=== PATIENT | male | born 1950 | race Caucasian/White ===

== ENCOUNTER 2020-11-22 22:26 | Inpatient (IN) | payer OTHER ==
[2020-11-22] MEDS ORDERED: NA CHLORIDE 0.9% 1,000 ML ONE (23:35)
[2020-11-22] MEDS ORDERED: CEFTRIAXONE 1000 MG/VIAL ONE (23:35)
[2020-11-23 00:09] LABS: Absolute Lymphocytes (CBC) 0.2 K/uL (0.7-4.9); Basophils % 0.1 % (0-1.3); Hematocrit 37.7 % (39.6-49.0); Lymphocytes % 1.3 % (15.3-44.8); MPV 8.3 fL (7.6-11.3); RBC Red Blood Cell Count 4.06 M/uL (4.33-5.43)
[2020-11-23 00:15] LABS: Urine Blood 2+ (Negative); Urine Glucose Negative (Negative); Urine Protein Negative (Negative); Urine Specific Gravity 1.015 (1.005-1.030)
[2020-11-23 00:33] LABS: ALT/SGPT 27 U/L (12-78); AST/SGOT 21 U/L (15-37); Albumin 3.8 g/dL (3.4-5.0); Alkaline Phosphatase 61 U/L (45-117); Amylase 79 U/L (25-115); BUN Blood Urea Nitrogen 25 mg/dL (7-18); Bicarbonate 25 mmol/L (21-32); Bilirubin Direct 0.2 mg/dL (0-0.2); Bilirubin Total 0.9 mg/dL (0.2-1.0); CKMB Creatine Kinase MB 1.7 ng/mL (1.0-3.6); Creatine Phosphokinase 148 U/L (39-308); Glucose Level 115 mg/dL (74-106); Lipase 213 U/L (73-393); Potassium 3.6 mmol/L (3.5-5.1); Sodium Level 145 mmol/L (136-145); Troponin (Emerg Dept Use Only) < 0.02 ng/mL (0.0-0.045)
[2020-11-23 00:36] LABS: Protime INR 1.09
[2020-11-23 01:18] LABS: Urine Bacteria >50 /HPF (NONE SEEN); Urine Yeast MANY (NONE SEEN)
--- NOTE | 2020-11-23 02:21 | ER ---
Nurse's Notes [facility] Name: Tony Lara Age: 70 yrs Sex: Male : 1950 Arrival Date: 11/22/2020 Time: 22:31 Bed 13 Private MD: Diagnosis: Severe sepsis without septic shock;Acute cystitis Presentation: 11/22 22:41 Chief complaint: Patient states: around 1500 pt was outside and began to feel dizzy and kc4 had tingling in hands. dizziness has subsided as of now. pt complains of nausea . Pre EMS pt had fever of 101.9 tylenol 1000mg given enroute. pt has extensive PMH. 11/23 00:06 Coronavirus screen: Vaccine status: Patient reports receiving the 2nd dose of the covid df1 vaccine. Ebola Screen: Patient negative for fever greater than or equal to 101.5 degrees Fahrenheit, and additional compatible Ebola Virus Disease symptoms. Initial Sepsis Screen: Does the patient meet any 2 criteria? Temp <36.0*C (96.8*F)) or > 38.3*C (100.9*F). HR > 90 bpm. Does the patient have a suspected source of infection? No. Patient's initial sepsis screen is negative. Risk Assessment: Do you want to hurt yourself or someone else? Patient reports no desire to harm self or others. Onset of symptoms was November 22, 2020. 00:06 Acuity: DAVID 3 df1 00:06 Method Of Arrival: EMS: [facility] df1 Triage Assessment: 11/22 22:45 General: Appears in no apparent distress. well groomed, Behavior is calm, cooperative, kc4 appropriate for age. Pain: Denies pain. EENT: No deficits noted. Neuro: Historical: - Allergies: 22:45 No Known Allergies; kc4 - Immunization history:: Adult Immunizations up to date, Client reports receiving the 2nd dose of the Covid vaccine. - Social history:: Smoking status: Patient denies any tobacco usage or history of. Patient/guardian denies using alcohol, street drugs, IV drugs, over the counter diet medications, tobacco products, The patient lives at home, No barriers to communication noted. - Family history:: unknown. - Hospitalizations: : No recent hospitalization is reported. Screenin/01 00:06 Abuse screen: Denies threats or abuse. Nutritional screening: No deficits noted. df1 Tuberculosis screening: No symptoms or risk factors identified. Fall Risk None identified. Assessment: 01:25 General: Appears in no apparent distress. Behavior is calm, cooperative, appropriate kc4 for age. Pain: Complains of pain in back Pain currently is 5 out of 10 on a pain scale. 01:27 Neuro: No deficits noted. Cardiovascular: No deficits noted. Cardiovascular: No kc4 deficits noted. Reports fatigue, lightheadedness, nausea, Denies chest pain, diaphoresis, palpitations, shortness of breath, syncope, vomiting, Heart tones S1 Capillary refill < 3 seconds Pulses are all present. Respiratory: No deficits noted. Respiratory: No deficits noted. GI: No deficits noted. No signs and/or symptoms were reported involving the gastrointestinal system. : Urine is blood tinged. EENT: No deficits noted. Derm: No deficits noted. Musculoskeletal: No deficits noted. 11:31 Reassessment: Patient appears in no apparent distress at this time. Patient and/or aj2 family updated on plan of care and expected duration. Pain level reassessed. Patient is alert, oriented x 3, equal unlabored respirations, skin warm/dry/pink. Patient states symptoms have improved. Vital Signs: 11/22 22:45 BP 117 / 68; Pulse 88; Resp 18; Temp 100.5(O); Pulse Ox 95% on R/A; Weight 82.55 kg kc4 (R); Height 5 ft. 7 in. (170.18 cm) (R); 11/23 00:07 BP 103 / 67; Pulse 73; Resp 18; Pulse Ox 95% on R/A; df1 01:24 BP 108 / 64; Pulse 68; Resp 18; Temp 98.8(O); Pulse Ox 99% on R/A; kc4 11:31 BP 98 / 76; Pulse 84; Resp 18; Temp 98.8; Pulse Ox 100% ; aj2 11/22 22:45 Body Mass Index 28.50 (82.55 kg, 170.18 cm) kc4 ED Course: 11/22 22:31 Patient arrived in ED. mw2 22:41 Maria Garcia is Primary Nurse. kc4 22:43 Conrad Herndon MD is Attending Physician. ma2 22:45 Arm band placed on left wrist. kc4 23:00 Inserted saline lock: 20 gauge in right forearm, using aseptic technique. kc4 11/23 00:04 Amylase Sent. df1 00:04 Amylase, Serum Sent. df1 00:04 Chest Single View XRAY Sent. df1 00:05 Basic Metabolic Panel Sent. df1 00:05 Blood Culture Adult (2) Sent. df1 00:05 CBC with Diff Sent. df1 00:05 CPK Sent. df1 00:05 Ckmb Sent. df1 00:05 LFT's Sent. df1 00:05 Lactate Sent. df1 00:05 Lipase Sent. df1 00:05 Procalcitonin Sent. df1 00:05 Protime (+inr) Sent. df1 00:05 Ptt, Activated Sent. df1 00:05 Troponin (emerg Dept Use Only) Sent. df1 00:05 Urine Microscopic Only Sent. df1 00:05 Inserted saline lock: 20 gauge in left wrist, using aseptic technique. df1 00:07 Triage completed. df1 00:07 Patient has correct armband on for positive identification. Placed in gown. Bed in low df1 position. Call light in reach. Side rails up X 1. 00:07 No provider procedures requiring assistance completed. df1 00:11 Chest Single View XRAY In Process Unspecified. EDMS 02:20 Clayton Song MD is Hospitalizing Provider. ma2 06:25 COVID-19 : Document "Date of Symptom Onset" if Symptomatic. Sent. kc4 06:26 Urine Culture Sent. kc4 06:26 Blood Culture Adult (2) Sent. kc4 06:26 CBC with Diff Sent. kc4 11:31 No apparent distress. Resting quietly. aj2 11:31 IV discontinued. aj2 Administered Medications: 11/22 23:16 Not Given (dose given with EMSs): Acetaminophen 1000 mg PO once kc4 23:50 Drug: NS 0.9% (30 ml/kg) 30 ml/kg Route: IV; Rate: bolus; Site: right antecubital; bs2 11/23 06:27 Follow up: Response: No adverse reaction; IV Status: Completed infusion kc4 11/22 23:50 Drug: Rocephin (cefTRIAXone) 1 grams Route: IV; Rate: calculated rate; Site: right bs2 antecubital; 11/23 06:26 Follow up: Response: No adverse reaction; IV Status: Completed infusion kc4 Outcome: 02:20 Decision to Hospitalize by Provider. ma2 12:46 Patient left the ED. iw Signatures: Dispatcher [employer] Carolyn Stephen, RN Conrad Llanes MD MD ma2 Grace Sarkar mw2 Cristy Chang RN RN bs2 Daniel Barajas Kourtney kc4 Bren Morales df1
--- NOTE | 2020-11-23 02:21 | EDPHYS ---
Physician Documentation [facility] Name: Tony Lara Age: 70 yrs Sex: Male : 1950 Arrival Date: 11/22/2020 Time: 22:31 Bed 13 Private MD: ED Physician Conrad Herndon HPI: 11/22 23:13 This 70 yrs old Male presents to ER via Unassigned with complaints of ma2 Dizziness, Fever. 23:13 The patient presents with feeling faint. Onset: The symptoms/episode began/occurred ma2 gradually, 1 day(s) ago. Associated signs and symptoms: Pertinent negatives: ataxia, combativeness, confusion, head injury, palpitations, , shortness of breath. Severity of symptoms: At their worst the symptoms were mild in the emergency department the symptoms are unchanged. The patient has experienced similar episodes in the past. Had a urological procedure, where they put a Stevenson in the problem for bladder urodynamic studies 3 days ago. He has symptom of UTI, dysuria and. Historical: - Allergies: 22:45 No Known Allergies; kc4 - Immunization history:: Adult Immunizations up to date, Client reports receiving the 2nd dose of the Covid vaccine. - Social history:: Smoking status: Patient denies any tobacco usage or history of. Patient/guardian denies using alcohol, street drugs, IV drugs, over the counter diet medications, tobacco products, The patient lives at home, No barriers to communication noted. - Family history:: unknown. - Hospitalizations: : No recent hospitalization is reported. ROS: 23:13 Constitutional: Negative for fever, chills, and weight loss. ma2 23:13 All other systems are negative. Exam: 23:13 Constitutional: This is a well developed, well nourished patient who is awake, alert, ma2 and in no acute distress. Head/Face: Normocephalic, atraumatic. Eyes: Pupils equal round and reactive to light, extra-ocular motions intact. Lids and lashes normal. Conjunctiva and sclera are non-icteric and not injected. Cornea within normal limits. Periorbital areas with no swelling, redness, or edema. ENT: Nares patent. No nasal discharge, no septal abnormalities noted. Tympanic membranes are normal and external auditory canals are clear. Oropharynx with no redness, swelling, or masses, exudates, or evidence of obstruction, uvula midline. Mucous membranes moist. Neck: Trachea midline, no thyromegaly or masses palpated, and no cervical lymphadenopathy. Supple, full range of motion without nuchal rigidity, or vertebral point tenderness. No Meningismus. Chest/axilla: Normal chest wall appearance and motion. Nontender with no deformity. No lesions are appreciated. Cardiovascular: Regular rate and rhythm with a normal S1 and S2. No gallops, murmurs, or rubs. Normal PMI, no JVD. No pulse deficits. Respiratory: Lungs have equal breath sounds bilaterally, clear to auscultation and percussion. No rales, rhonchi or wheezes noted. No increased work of breathing, no retractions or nasal flaring. Abdomen/GI: Soft, non-tender, with normal bowel sounds. No distension or tympany. No guarding or rebound. No evidence of tenderness throughout. Back: No spinal tenderness. No costovertebral tenderness. Full range of motion. Skin: Warm, dry with normal turgor. Normal color with no rashes, no lesions, and no evidence of cellulitis. MS/ Extremity: Pulses equal, no cyanosis. Neurovascular intact. Full, normal range of motion. Neuro: Awake and alert, GCS 15, oriented to person, place, time, and situation. Cranial nerves II-XII grossly intact. Motor strength 5/5 in all extremities. Sensory grossly intact. Cerebellar exam normal. Normal gait. Vital Signs: 22:45 BP 117 / 68; Pulse 88; Resp 18; Temp 100.5(O); Pulse Ox 95% on R/A; Weight 82.55 kg kc4 (R); Height 5 ft. 7 in. (170.18 cm) (R); 11/23 00:07 BP 103 / 67; Pulse 73; Resp 18; Pulse Ox 95% on R/A; df1 01:24 BP 108 / 64; Pulse 68; Resp 18; Temp 98.8(O); Pulse Ox 99% on R/A; kc4 11:31 BP 98 / 76; Pulse 84; Resp 18; Temp 98.8; Pulse Ox 100% ; aj2 11/22 22:45 Body Mass Index 28.50 (82.55 kg, 170.18 cm) kc4 MDM: 11/22 22:43 Patient medically screened. [facility] 23:13 Differential diagnosis: hypovolemia, idiopathic dizziness, near-syncope, UTI. [facility] 11/23 02:19 Data reviewed: vital signs, nurses notes. Counseling: I had a detailed discussion with [facility] the patient and/or guardian regarding: the historical points, exam findings, and any diagnostic results supporting the discharge/admit diagnosis, the presence of at least one elevated blood pressure reading (>120/80) during this emergency department visit, the need for further work-up and treatment in the hospital. Response to treatment: the patient's symptoms have markedly improved after treatment. 11/22 23:05 Order name: Amylase, Serum [facility] 11/22 23:05 Order name: Basic Metabolic Panel; Complete Time: 00:34 [facility] 11/22 23:05 Order name: Blood Culture Adult (2) [facility] 11/22 23:05 Order name: CBC with Diff [facility] 11/22 23:05 Order name: CPK; Complete Time: 00:34 [facility] 11/22 23:05 Order name: Ckmb; Complete Time: 00:34 [facility] 11/22 23:05 Order name: LFT's; Complete Time: 00:34 [facility] 11/22 23:05 Order name: Lactate; Complete Time: 00:33 [facility] 11/22 23:05 Order name: Lipase; Complete Time: 00:34 [facility] 11/22 23:05 Order name: Procalcitonin; Complete Time: 00:59 [facility] 11/22 23:05 Order name: Protime (+inr); Complete Time: 00:41 [facility] 11/22 23:05 Order name: Ptt, Activated; Complete Time: 00:41 [facility] 11/22 23:05 Order name: Troponin (emerg Dept Use Only); Complete Time: 00:34 [facility] 11/22 23:05 Order name: Urine Microscopic Only; Complete Time: 01:26 [facility] 11/22 23:05 Order name: Chest Single View XRAY [facility] 11/22 23:05 Order name: Accucheck; Complete Time: 00:04 [facility] 11/22 23:05 Order name: Cardiac monitoring; Complete Time: 23:17 [facility] 11/22 23:05 Order name: EKG - Nurse/Tech; Complete Time: 23:17 [facility] 11/22 23:06 Order name: Amylase; Complete Time: 00:34 EDMS 11/23 00:14 Order name: Urine Dipstick-Ancillary; Complete Time: 00:33 EDMS 11/23 00:22 Order name: Glucose, Ancillary Testing; Complete Time: 00:33 EDMS 11/23 01:09 Order name: COVID-19 : Document "Date of Symptom Onset" if Symptomatic. ma2 11/23 01:19 Order name: Urine Culture EDMS 11/23 06:46 Order name: CBC with Automated Diff EDMS 11/23 07:08 Order name: Comprehensive Metabolic Panel EDMS 11/23 07:12 Order name: Procalcitonin EDMS 11/23 09:20 Order name: Manual Differential EDMS 11/22 23:05 Order name: IV Saline Lock - Large Bore; Complete Time: 23:20 ak2 11/22 23:05 Order name: Labs collected and sent; Complete Time: 00:04 ak2 11/22 23:05 Order name: O2 Per Protocol; Complete Time: 23:17 ak2 11/22 23:05 Order name: O2 Sat Monitoring; Complete Time: 23:17 ma2 11/22 23:05 Order name: Urine Dipstick-Ancillary (obtain specimen); Complete Time: 00:04 [facility] Administered Medications: 11/22 23:16 Not Given (dose given with EMSs): Acetaminophen 1000 mg PO once kc4 23:50 Drug: NS 0.9% (30 ml/kg) 30 ml/kg Route: IV; Rate: bolus; Site: right antecubital; 2 11/23 06:27 Follow up: Response: No adverse reaction; IV Status: Completed infusion kc4 11/22 23:50 Drug: Rocephin (cefTRIAXone) 1 grams Route: IV; Rate: calculated rate; Site: right bs2 antecubital; 11/23 06:26 Follow up: Response: No adverse reaction; IV Status: Completed infusion kc4 Disposition Summary: 11/23/20 02:20 Hospitalization Ordered Hospitalization Status: Inpatient Admission ma2 Provider: Clayton Song Condition: Stable ma2 Problem: new ma2 Symptoms: are unchanged ma2 Bed/Room Type: Standard [facility] Location: Telemetry/MedSurg (Inpatient)(11/23/20 11:20) Room Assignment: [facility](11/23/20 11:20) eb Diagnosis - Severe sepsis without septic shock ma2 - Acute cystitis ma2 Discharge Instructions: - Discharge Summary Sheet ma2 Forms: - Medication Reconciliation Form ma2 - SBAR form ma2 Prescriptions: - Cipro 500 mg Oral Tablet - take 1 tablet by ORAL route every 12 hours for 7 days; 14 tablet; Refills: 0, ma2 Product Selection Permitted Signatures: Dispatcher [employer] EDMI Kevin Sandoval, SECURITY ADMINISTRATOR-C SECURITY ADMINISTRATOR-Cla1 Bernarda Lombardo RN RN tl1 Conrad Herndon MD MD ma2 Bessie Summers Bridget, RN RN bs2 Maria Garcia 4 Corrections: (The following items were deleted from the chart) 04:15 02:20 Telemetry/MedSurg (Inpatient) ma2 tl1 04:15 02:20 ma2 tl1 11:20 04:15 [facility] ER HOLD 1 eb 11:20 04:15 ERHOLD- 1 eb
--- NOTE | 2020-11-23 04:25 | P.HP ---
Certification for Inpatient Patient admitted to: Observation With expected LOS: <2 Midnights Patient will require the following post-hospital care: None Practitioner: I am a practitioner with admitting privileges, knowledge of patient current condition, hospital course, and medical plan of care. Services: Services provided to patient in accordance with Admission requirements found in Title 42 Section 412.3 of the Code of Federal Regulations <Kevin Sandoval - Last Filed: 11/23/20 04:25> Patient History Date of Service: 11/23/20 Reason for admission: UTI History of Present Illness: 70-year-old male with history of multiple spinal injuries, BPH presents emergency department for fever, malaise. Patient reports that he developed fever yesterday, does report that he had urodynamic testing 3 days ago with his urologist. Patient was evaluated in the emergency department labs were significant for white count 16.5 hemoglobin 12.6 medical 37.7 platelet count 83 GFR 57 procalcitonin 2.59 urinalysis with greater than 50 bacteria 2+ blood, yeastmany. Patient was initially febrile to 101 but treated with Tylenol. ED provider wishes to admit under observation for further evaluation and management of UTI status post instrumentation. - Past Medical/Surgical History -: BPH -: Multiple spinal injuries -: Cervical fusion -: Multiple back surgeries Psychosocial/ Personal History: Lives at home, alone and is retired - Social History Smoking Status: Never smoker Alcohol use: No CD- Drugs: No Caffeine use: Yes Place of Residence: Home <Kevin Sandoval - Last Filed: 11/23/20 04:25> Date of Service: 11/23/20 <Clayton Song - Last Filed: 11/23/20 17:32> Review of Systems 10-point ROS is otherwise unremarkable General: Fever, Chills, Weakness, Malaise Genitourinary: Frequency, Urgency <Kevin Sandoval - Last Filed: 11/23/20 04:25> Physical Examination - Physical Exam General: Alert, In no apparent distress, Oriented x3 HEENT: Atraumatic, PERRLA, Mucous membr. moist/pink Neck: Supple, 2+ carotid pulse no bruit, No LAD Respiratory: Clear to auscultation bilaterally, Normal air movement Cardiovascular: Regular rate/rhythm, Normal S1 S2 Gastrointestinal: Normal bowel sounds, No tenderness Musculoskeletal: No tenderness Integumentary: No rashes Neurological: Normal speech, Normal strength at 5/5 x4 extr, Normal tone, Normal affect - Studies Laboratory Data (last 24 hrs) 11/22/20 23:45: PT 12.6 H, INR 1.09, APTT ND 11/22/20 23:45: WBC 16.50 H, Hgb 12.6 L, Hct 37.7 L, Plt Count 83 L 11/22/20 23:45: Sodium 145, Potassium 3.6, BUN 25 H, Creatinine 1.25, Glucose 115 H, Total Bilirubin 0.9, AST 21, ALT 27, Alkaline Phosphatase 61, Amylase 79, Lipase 213 <Kevin Sandoval - Last Filed: 11/23/20 04:25> - Studies Laboratory Data (last 24 hrs) 11/23/20 05:37: Sodium 147 H, Potassium 4.2, BUN 22 H, Creatinine 1.11, Glucose 117 H, Total Bilirubin 0.7, AST 13 L, ALT 23, Alkaline Phosphatase 52 11/23/20 05:37: WBC 16.20 H, Hgb 11.5 L, Hct 34.3 L, Plt Count 83 L 11/22/20 23:45: PT 12.6 H, INR 1.09, APTT ND 11/22/20 23:45: WBC 16.50 H, Hgb 12.6 L, Hct 37.7 L, Plt Count 83 L 11/22/20 23:45: Sodium 145, Potassium 3.6, BUN 25 H, Creatinine 1.25, Glucose 115 H, Total Bilirubin 0.9, AST 21, ALT 27, Alkaline Phosphatase 61, Amylase 79, Lipase 213 <Clayton Song - Last Filed: 11/23/20 17:32> Assessment and Plan - Plan Assessment: Dysuria, leukocytosis secondary to urinary tract infection status post instrumentationurodynamic testing with history of BPH Thrombocytopenia Plan: Dysuria, leukocytosis secondary to urinary tract infection status post instrumentationurodynamic testing with history of BPH: Blood and urine cultures obtained continue with Rocephin at this time. Recheck labs for improvement of leukocytosis/procalcitonin. Patient able to void without significant difficulty at this time. Anticipate clinical improvement over the course next 24 to 48 hours. Thrombocytopenia: Unknown etiology, patient with similar thrombocytopenia in 2011. Will monitor with daily labs, provide SCDs for DVT prophylaxis. DVT PPX: SCDs Code status: Full code Discharge Plan: Home Plan to discharge in: 24 Hours - Advance Directives Does patient have a Living Will: No Does patient have a Durable POA for Healthcare: No - Code Status/Comfort Care Code Status Assessed: Yes (Full code) Critical Care: No Time Spent Managing Pts Care (In Minutes): 55 <Kevin Sandoval - Last Filed: 11/23/20 04:25> - Plan Patient seen and examined on rounds this morning Reports feeling slightly better. Concerned about leaving his dog home alone. Anxious to get back home as soon as possible Borderline temperature this morning, no significant change in leukocytosis. Continue plan as noted above. Possible discharge tomorrow <Clayton Song - Last Filed: 11/23/20 17:32>
[2020-11-23] MEDS ORDERED: HYDROCODONE/APAP 7.5/325 MG TAB PO PRN (04:30)
[2020-11-23] MEDS ORDERED: ONDANSETRON 4 MG/2 ML VIAL IV PRN (04:30)
[2020-11-23] MEDS: NA CHLORIDE 0.9% 1,000 ML IV SCH ×2 (04:30→17:21)
[2020-11-23] MEDS ORDERED: NA CHLORIDE 0.9% 1,000 ML ONE ×2 (05:09→09:45)
[2020-11-23 06:40] LABS: Absolute Lymphocytes (CBC) 0.6 K/uL (0.7-4.9); Basophils % 0.2 % (0-1.3); Hematocrit 34.3 % (39.6-49.0); Lymphocytes % 3.7 % (15.3-44.8); MPV 8.6 fL (7.6-11.3); RBC Red Blood Cell Count 3.67 M/uL (4.33-5.43)
[2020-11-23 07:06] LABS: Albumin 3.3 g/dL (3.4-5.0); Bilirubin Total 0.7 mg/dL (0.2-1.0); Potassium 4.2 mmol/L (3.5-5.1)
--- NOTE | 2020-11-23 07:07 | RAD REPORT ---
EXAM DESCRIPTION: RAD - Chest Single View - 11/23/2020 12:06 am CLINICAL HISTORY: uti COMPARISON: CHEST SINGLE VIEW dated 02/26/2011 FINDINGS: Lines: None. Lungs: No evidence of edema or pneumonia. Pleural: No significant pleural effusions or pneumothorax. Cardiac: The heart size is within normal limits. Bones: No acute fractures. ACDF in the cervical spine. Other: IMPRESSION: No acute cardiopulmonary disease.
[2020-11-23] MEDS ORDERED: PNEUMOCOCCAL VACCINE 0.5 ML IMVAC ONE ×3 (08:00→10:13)
[2020-11-23] MEDS ORDERED: INFLUENZA VACCINE (for 6+ mo) 0.5 ML DOSE IMVAC ONE ×2 (08:00→09:45)
[2020-11-23 09:20] LABS: Blood Morphology Comment NOT SEEN (NOT SEEN); Platelet Estimate DECR
[2020-11-23 14:55] VITALS: BMI 28.6
[2020-11-23] MEDS ORDERED: BISACODYL E.C. 5 MG TAB PO ONE (19:55)
[2020-11-23] MEDS: CEFTRIAXONE 1 GM/NS 50 ML 1 GM/50 ML BAG IV SCH (20:48)
[2020-11-23] MEDS: GABAPENTIN 300 MG CAP PO SCH (20:49)
[2020-11-23] MEDS ORDERED: HOME MED 1 EA UNK (Gabapentin [Gabapentin] 600 MG Tablet) PO SCH (21:00)
[2020-11-23] MEDS ORDERED: ACETAMINOPHEN 325 MG TABLET PO PRN (21:39)
[2020-11-24] MEDS: NA CHLORIDE 0.9% 1,000 ML IV SCH ×5 (00:30→20:00)
[2020-11-24] MEDS ORDERED: NA CHLORIDE 0.9% 500 ML IV ONE (03:43)
[2020-11-24 07:01] LABS: Absolute Lymphocytes (CBC) 0.7 K/uL (0.7-4.9); Basophils % 0.3 % (0-1.3); Hematocrit 32.5 % (39.6-49.0); Lymphocytes % 12.2 % (15.3-44.8); MPV 8.6 fL (7.6-11.3); RBC Red Blood Cell Count 3.44 M/uL (4.33-5.43)
[2020-11-24 07:28] LABS: Albumin 2.8 g/dL (3.4-5.0); Bilirubin Total 0.3 mg/dL (0.2-1.0); Potassium 3.8 mmol/L (3.5-5.1); Protein, Total 5.4 g/dL (6.4-8.2)
[2020-11-24] MEDS: GABAPENTIN 300 MG CAP PO SCH ×2 (08:58→20:12)
--- NOTE | 2020-11-24 11:16 | EKG ---
Test Date: 2020-11-22 Test Time: 22:40:06 Husker Operator: MEASUREMENT RESULTS: Intervals: Rate: 91 FL: 142 QRSD: 88 QT: 342 QTc: 420 [place]: P: 37 FL: 142 QRS: -16 T: 31 INTERPRETIVE STATEMENTS: Normal sinus rhythm Nonspecific T wave abnormality Abnormal ECG Compared to ECG 02/26/2011 06:25:14 T-wave abnormality now present Sinus bradycardia no longer present Electronically Signed On 11-24-20 11:13:24 CDT by Niko Florez
--- NOTE | 2020-11-24 12:43 | P.PN ---
Date of Service: 11/24/20 Subjective: Patient reports feeling better today. Reports had headache overnight, felt clinical registered nurse his head and cold in his lower body. Dysuria some slight improvement, no hematuria. Slight nausea, no vomiting, no diarrhea Patient with low blood pressure overnight, given 500 cc bolus. 10 point review of system otherwise negative. Physical exam GEN: Alert, oriented, NAD HEENT: Normal conjunctiva, sclera anicteric CV: Regular rate and rhythm, no edema Pulm: Nonlabored respiration on room air ABD: Soft, nontender, nondistended Integumentary: No rashes Neuro: Normal speech, normal affect Problem list Acute cystitis, s/p instrumentation/urodynamic testing History of BPH Thrombocytopenia Patient with overall improvement, improving appetite, improving energy, improving strength Slightly hypotensive this morning, states slight decreased p.o. intake We will continue to monitor blood pressure/electrolytes Continue IV fluids If patient continues to improve, possibility of discharge home tomorrow Need to await for urine culture finalization/speciation. Patient does state over the last several months he has been told his blood pressure runs low. Code: Full Dispo: Dissipate discharge home in the next 1-2 days Time Spent Managing Pts Care (In Minutes): 35
[2020-11-24] MEDS: CEFTRIAXONE 1 GM/NS 50 ML 1 GM/50 ML BAG IV SCH (20:12)
[2020-11-24 22:55] VITALS: O2SAT 92
[2020-11-25] MEDS: NA CHLORIDE 0.9% 1,000 ML IV SCH ×2 (01:25→04:00)
[2020-11-25 06:11] LABS: Absolute Lymphocytes (CBC) 0.9 K/uL (0.7-4.9); Basophils % 0.3 % (0-1.3); Hematocrit 33.9 % (39.6-49.0); Lymphocytes % 11.2 % (15.3-44.8); MPV 9.1 fL (7.6-11.3); RBC Red Blood Cell Count 3.65 M/uL (4.33-5.43)
[2020-11-25 06:34] LABS: Albumin 2.8 g/dL (3.4-5.0); Bilirubin Total 0.3 mg/dL (0.2-1.0); Potassium 4.2 mmol/L (3.5-5.1); Protein, Total 5.7 g/dL (6.4-8.2)
[2020-11-25] MEDS ORDERED: SMZ./TMP. 800/160 MG TABLET PO SCH (09:00)
[2020-11-25] MEDS: GABAPENTIN 300 MG CAP PO SCH (09:24)
--- NOTE | 2020-11-25 11:05 | P.DS ---
Admission Date: 11/23/20 Discharge Date: 11/25/20 Disposition: ROUTINE DISCHARGE Discharge Condition: GOOD Reason for Admission: UTI Procedures: CXR (11/23): no acute cardiopulmonary process Problem list Acute cystitis, s/p instrumentation/urodynamic testing History of BPH Thrombocytopenia, chronic Brief History of Present Illness: 70-year-old male with history of multiple spinal injuries, BPH presents emergency department for fever, malaise. Patient reports that he developed fever yesterday, does report that he had urodynamic testing 3 days ago with his urologist. Patient was evaluated in the emergency department labs were significant for white count 16.5 hemoglobin 12.6 medical 37.7 platelet count 83 GFR 57 procalcitonin 2.59 urinalysis with greater than 50 bacteria 2+ blood, yeastmany. Patient was initially febrile to 101 but treated with Tylenol. ED provider wishes to admit under observation for further evaluation and management of UTI s/p instrumentation. Hospital Course: His UA was notable for bacteria and yeast. Patient was empirically treated with IV rocephin for his UTI. He had gradual improvement of his symptoms and was feeling better every day. Urine culture grew resistant Enterobacter. He was switched to Bactrim. He felt significantly better and was asking to be discharged home. He was discharged to complete 14 days of Bactrim and diflucan. He will follow up with his PCP in 3-5 days Follow up with his urologist as scheduled in the next 1-2 weeks. Vital Signs/Physical Exam: Physical exam GEN: Alert, oriented, NAD HEENT: Normal conjunctiva, sclera anicteric CV: Regular rate and rhythm, no edema Pulm: Nonlabored respiration on room air ABD: Soft, nontender, nondistended Integumentary: No rashes Neuro: Normal speech, normal affect Temp Pulse Resp BP Pulse Ox 98.1 F 57 16 96/52 L 92 11/25/20 08:00 11/25/20 08:00 11/25/20 08:00 11/25/20 08:00 11/25/20 08:00 Laboratory Data at Discharge: WBC 7.90 K/uL (4.3-10.9) D 11/25/20 05:17 Hgb 11.5 g/dL (13.6-17.9) L 11/25/20 05:17 Hct 33.9 % (39.6-49.0) L 11/25/20 05:17 Plt Count 86 K/uL (152-406) L D 11/25/20 05:17 PT 12.6 SECONDS (9.5-12.5) H 11/22/20 23:45 INR 1.09 11/22/20 23:45 APTT ND 11/22/20 23:45 Sodium 144 mmol/L (136-145) 11/25/20 05:17 Potassium 4.2 mmol/L (3.5-5.1) 11/25/20 05:17 BUN 12 mg/dL (7-18) 11/25/20 05:17 Creatinine 1.03 mg/dL (0.55-1.3) 11/25/20 05:17 Glucose 106 mg/dL (74-106) 11/25/20 05:17 Total Bilirubin 0.3 mg/dL (0.2-1.0) 11/25/20 05:17 AST 15 U/L (15-37) 11/25/20 05:17 ALT 22 U/L (12-78) 11/25/20 05:17 Alkaline Phosphatase 49 U/L (45-117) 11/25/20 05:17 Amylase 79 U/L (25-115) 11/22/20 23:45 Lipase 213 U/L (73-393) 11/22/20 23:45 Home Medications: Alendronate Sodium [Fosamax] 70 mg PO EVERY 7TH DAY 11/23/20 Gabapentin 600 mg PO BID 11/23/20 Hydrocodone Bit/Acetaminophen [Hydrocodon-Acetaminoph 7.5-325] 1 tab PO Q6H PRN 11/23/20 Fluconazole [Diflucan] 200 mg PO DAILY 14 Days #14 tablet 11/25/20 Smz./Tmp. [Bactrim Ds 800 MG/160 MG*] 1 tab PO BID 14 Days #28 tab 11/25/20 New Medications: Smz./Tmp. [Bactrim Ds 800 MG/160 MG*] 1 tab PO BID 14 Days #28 tab Fluconazole [Diflucan] 200 mg PO DAILY 14 Days #14 tablet Diet: Regular Activity: Ad roshni Followup: NONE,NONE [Primary Care Provider] - Christian Kirkpatrick [ACTIVE - CAN ADMIT] - Time spent managing pt's care (in minutes): 40
[2020-11-25 12:36] VITALS: BP 106/60; TEMP 97.7
== END 2020-11-25 12:18 | disposition home or self-care (01) | DRG 690 ==
LOC: ER 22:26 → OBSVTOIN 11-23 04:25 → INTOOBSV 11-23 04:25 → ERHOLD 11-23 04:25 → 2ND 11-23 12:40 → OBSVTOIN 11-23 15:21
PROVIDERS: ADMIT Hospitalist; ATTEND Hospitalist
DX: N30.00 Acute cystitis without hematuria (principal); N40.0 Benign prostatic hyperplasia without lower urinary tract symptoms; D69.6 Thrombocytopenia, unspecified; I95.9 Hypotension, unspecified; Z23 Encounter for immunization
CPT/HCPCS: 36415; 71045; 80048; 80053; 80076; 81003; 81015; 82150; 82550; 82553; 82947; 83605; 83690; 84145; 84484; 85025; 85610; 85730; 87040; 87077; 87086; 87088; 87186; 87205; 90471; 90732; 93005; 96365; 96366; 96368; 99284; G0378; J0696; J7030; J7040; Q2035

== ENCOUNTER 2021-03-05 09:47 | Day surgery (SDC) | payer OTHER ==
[2021-03-01 15:19] LABS: Absolute Lymphocytes (CBC) 0.9 K/uL (0.7-4.9); Hematocrit 41.7 % (39.6-49.0); Lymphocytes % 18.5 % (15.3-44.8); MPV 8.4 fL (7.6-11.3)
[2021-03-01 15:22] LABS: Protime INR 0.98
[2021-03-01 15:37] LABS: Potassium 4.1 mmol/L (3.5-5.1)
[2021-03-01 16:59] LABS: Blood Morphology Comment NOT SEEN (NOT SEEN); Platelet Estimate DECR; White Blood Cell Scan OK (OK)
[~2021-03-05 09:47] MED LIST: AMPICILLIN SODIUM 2 GM in NA CHLORIDE 0.9% 100 ML IVPB SCH; Gentamicin Inj 200 MG in NA CHLORIDE 0.9% 100 ML IV SCH
[2021-03-05] MEDS ORDERED: Ringers Lactate 1,000 ML IV ONE (10:26)
[2021-03-05] MEDS ORDERED: ACETAMINOPHEN 500 MG TAB ONE (11:09)
[2021-03-05] MEDS ORDERED: CELECOXIB 100 MG CAPSULE ONE (11:09)
[2021-03-05] MEDS ORDERED: CELECOXIB 100 MG CAPSULE PO ONE (11:10)
[2021-03-05] MEDS ORDERED: ACETAMINOPHEN 500 MG TAB PO ONE (11:10)
[2021-03-05] MEDS ORDERED: MIDAZOLAM HCL 2 MG/2 ML INJ ONE (12:54)
[2021-03-05] MEDS ORDERED: ONDANSETRON 4 MG/2 ML VIAL ONE (12:54)
[2021-03-05] MEDS ORDERED: propofoL 200 MG/20 ML VIAL IV ONE (12:54)
[2021-03-05] MEDS ORDERED: FENTANYL CITR 100 MCG/2 ML ONE (12:54)
[2021-03-05] MEDS ORDERED: LIDOCAINE 1% MPF 5 ML VIAL ONE (12:55)
[2021-03-05] MEDS ORDERED: GLYCOPYRROLATE 0.2 MG/ML SYR ONE (13:45)
[2021-03-05] MEDS ORDERED: EPHEDRINE SULF 50 MG/ML VIAL ONE (13:46)
[2021-03-05] MEDS ORDERED: CODEINE 30MG/APAP 300MG TAB PO PRN (14:54)
[2021-03-05] MEDS ORDERED: PHENAZOPYRIDINE 100MG TAB PO ONE (14:54)
[2021-03-05] MEDS ORDERED: OPIUM/BELLADONNA SUPPOS (30-16.2 MG) PR ONE ×2 (14:54→15:06)
--- NOTE | 2021-03-05 15:26 | OP ---
Surgeon: NOEMY COLE Preoperative Diagnoses: 1.Benign prostatic hypertrophy with lower urinary tract obstruction. 2.Detrusor instability. Postoperative Diagnoses: 1.Benign prostatic hypertrophy with lower urinary tract obstruction. 2.Detrusor instability. Principal Procedure: Cystoscopy and transurethral resection of the prostate channel. Indication For Procedure: Mr. Lara is a 70-year-old gentleman with urodynamics revealing severe de trusor instability likely secondary to multiple prior spine injuries and a T11 fracture with lumbar s acral fusions. Because he also had signs of obstruction on urodynamics, I did recommend surgical the rapy or alternatively medical therapy with finasteride, but he elected to proceed with surgical thera py. The decision to proceed with a more limited TURP was based on the severity of his detrusor insta bility and the concern for urge incontinence or instability related incontinence postoperatively. Procedure In Detail: The patient was consented in the preoperative holding area before being transfe rred to operative suite where general anesthesia was induced. He was given ampicillin and gentamicin IV antimicrobial prophylaxis and pneumo boots were provided for DVT prophylaxis. He was placed in t he lithotomy position, padded and secured to the table appropriately. His genitalia were prepped usi ng Hibiclens and he was draped in standard fashion. The case was begun using urethral sounds to dila te the meatus and fossa navicularis to 30-Hungarian. Then using the visual obturator and a 26-Hungarian re sectoscope sheath, the urethra was traversed and the bladder entered. Through the prostatic urethra, there was significant lateral lobar hypertrophy that interdigitating in the region of the apex and i n the mid portion of the prostate and at the bladder neck. There was an intravesically projecting me jordan lobe that was bulged out and abutting the trigone. As a result, I initiated resection with the median lobe, resecting it with the ureteral orifices directly in visualization. Once completely rese cted, I then turned my attention to the median bar, which was then leveled down to the level of the b ladder neck and then subsequently the remainder of the bar was taken all the way down to the level of the verumontanum. Once a nice trough had been created, where there was excessive overlap and interd igitation of lateral lobar hypertrophy, I performed some resection there, particularly at the level o f the bladder neck, but I left a degree of butting or abutting lateral lobar tissue at the apex to av oid the excessiveness of the resection that might result in the incontinence. I then Wesley evacuated all prostate chips and carefully removed any residual chips within the bladder before making a caref ul search for bleeding with his bladder completely decompressed. I fulgurated any and all bleeding v essels and again ensured that I was happy with the degree of resection. Once there was no sign of an y residual bleeding, all prostate chips had been removed, and there was a nice widely patent channel from the apex to the verumontanum with only abutting apical lateral tissue that was no longer interdi gitating and overlapping, I then left the bladder full and removed the scope. I then placed a 22-[facility] 3-way Stevenson catheter into the bladder with ease, and I placed 30 cc of sterile water in the ballo on. The patient was then taken out of the lithotomy position, awakened from general anesthesia, ca sferred to a stretcher, and then transferred to the recovery room in good condition. Complications: None. Discharge Disposition: He should follow up in the Urology Clinic on or potentially Thursday f or catheter removal and voiding trial. RANJIT/DUC Voice ID: [id number] Report ID: [id number]
[2021-03-05 17:26] VITALS: BP 139/76; TEMP 97.1; O2SAT 99
== END 2021-03-05 16:36 | disposition home or self-care (01) ==
LOC: OR 09:47
PROVIDERS: ATTEND Urology
PROC: 0VT08ZZ Resection of Prostate, Via Natural or Artificial Opening Endoscopic (ICD-10-PCS; principal; 2021-03-05 11:00)
DX: N40.1 Benign prostatic hyperplasia with lower urinary tract symptoms (principal); N39.41 Urge incontinence; N32.81 Overactive bladder; N52.9 Male erectile dysfunction, unspecified; N32.3 Diverticulum of bladder; Z20.822 Contact with and (suspected) exposure to COVID-19
CPT/HCPCS: 87088; 85025; 87086; 80048; 36415; 85610; 88305; 52630; G0103; U0003; J2704; J1580; J2250; J3010; J7120; J2405; J0290

== ENCOUNTER 2023-04-14 07:10 | Day surgery (SDC) | payer OTHER ==
[2023-04-06 09:15] LABS: Absolute Lymphocytes (CBC) 0.9 K/uL (0.7-4.9); Hematocrit 39.8 % (39.6-49.0); Lymphocytes % 17.3 % (15.3-44.8); MCV 93.3 fL (80-100); MPV 8.3 fL (7.6-11.3); Platelets 107 thou/uL (152-406); Protime INR 1.07; RBC Red Blood Cell Count 4.27 M/uL (4.33-5.43)
[2023-04-06 09:26] LABS: Potassium 4.4 mEq/L (3.5-5.1)
--- NOTE | 2023-04-06 11:34 | RAD REPORT ---
EXAM DESCRIPTION: RAD - Chest Pa And Lat (2 Views) - 04/06/2023 9:14 am CLINICAL HISTORY: pre op for surgery. Hypertension COMPARISON: Chest Single View dated 11/22/2020; CHEST SINGLE VIEW dated 02/26/2011 TECHNIQUE: PA and lateral views of the chest were obtained. FINDINGS: The lungs are clear. Heart size is normal and central vasculature is within normal limits. No pleural effusion or pneumothorax seen. No acute bony finding noted. IMPRESSION: No acute cardiopulmonary process.
--- NOTE | 2023-04-06 13:32 | EKG ---
Test Date: 2023-04-06 Test Time: 09:52:23 Shipyard Supervisor: ANGI MEASUREMENT RESULTS: Intervals: Rate: 53 WI: 162 QRSD: 88 QT: 426 QTc: 399 [place]: P: 58 WI: 162 QRS: 8 T: 65 INTERPRETIVE STATEMENTS: Sinus bradycardia Low voltage QRS Borderline ECG Compared to ECG 11/22/2020 22:40:06 Low QRS voltage now present Sinus rhythm no longer present T-wave abnormality no longer present Electronically Signed On 04-06-23 13:31:54 DETACKER by Liang Farris
[2023-04-14] MEDS: Ringers Lactate 1,000 ML IV ONE (07:45)
[2023-04-14] MEDS ORDERED: SUCCINYLCHOLINE 20 MG/ML (10 ML) IV ONE (08:12)
[2023-04-14] MEDS ORDERED: ROCURONIUM 50 MG/5 ML VIAL IV ONE (08:12)
[2023-04-14] MEDS ORDERED: SUGAMMADEX SODIUM 200 MG/2 ML VIAL IV ONE (08:12)
[2023-04-14] MEDS ORDERED: ONDANSETRON 4 MG/2 ML VIAL ONE (08:12)
[2023-04-14] MEDS ORDERED: LIDOCAINE 2% MPF 5 ML VIAL ONE (08:13)
[2023-04-14] MEDS ORDERED: propofoL 200 MG/20 ML VIAL IV ONE (08:13)
[2023-04-14] MEDS ORDERED: FENTANYL CITR 100 MCG/2 ML ONE (08:13)
[2023-04-14] MEDS: CEFAZOLIN SODIUM 2 GM/VIAL ONE (09:04)
[2023-04-14] MEDS ORDERED: dexAMETHasone 10 MG/ML VIAL ONE (09:09)
[2023-04-14] MEDS ORDERED: EPHEDRINE SULF 50 MG/ML VIAL ONE (09:14)
[2023-04-14] MEDS ORDERED: GLYCOPYRROLATE 0.2 MG/ML SYR ONE (10:21)
[2023-04-14] MEDS ORDERED: NEOSTIGMINE 1 MG/ML -10 ML VIAL ONE (10:21)
[2023-04-14] MEDS ORDERED: Ringers Lactate 1,000 ML IV ONE (10:26)
[2023-04-14] MEDS ORDERED: PHENAZOPYRIDINE 100MG TAB PO ONE (11:51)
[2023-04-14] MEDS ORDERED: CODEINE 30MG/APAP 300MG TAB PO PRN (11:51)
[2023-04-14 14:15] VITALS: BP 119/61; TEMP 96.5; O2SAT 97
--- NOTE | 2023-04-15 03:26 | OP ---
Surgeon: NOEMY COLE Preoperative Diagnoses: 1.Prostatic urethral calcification. 2.BPH with lower urinary tract obstruction and symptoms. Postoperative Diagnoses: 1.Prostatic urethral calcification. 2.BPH with lower urinary tract obstruction and symptoms. Principal Procedures: 1.Holmium laser cystolitholapaxy of prostatic urethral calculi. 2.Holmium laser enucleation of the prostate. Indication For Procedure: Mr. Lara presented to Urology Clinic initially having significant improv ement in his lower urinary symptoms that then deteriorated slightly. He underwent outpatient cystosc opic evaluation which revealed the presence of significant prostatic urethral calcifications that wer e likely contributing to his irritative urinary symptoms and also his obstructive LUTS. As a result, he was counseled on the recommendation to have those calcifications removed, which I would do with t he holmium laser and I explained I would also complete any resection of recurrent adenoma at that mimi e as needed. Procedure In Detail: The patient was consented in the preoperative holding area before being transfe rred to the operative suite where general anesthesia was induced. He was given Ancef 2 g IV antimicr obial prophylaxis, and pneumo boots were provided for DVT prophylaxis. He was placed in the lithotom y position, padded and secured to the table appropriately. His genitalia were prepped with Hibiclens and he was draped in standard fashion. The case was begun using urethral sounds to dilate the meatu s and fossa navicularis to 30 Cambodian. I then utilized a visual obturator and the 26-Cambodian resectosc ope sheath to traverse the urethra and into the bladder beyond some obstruction physically present du e to the prostatic urethral calcifications. Upon entry into the bladder, I decompressed it off fluid and urine and surveyed it. No papillary mucosal lesions were noted throughout. The ureteral orific es were orthotopic in location and far enough away from the bladder neck. There was a slight degree of bladder neck contracture which was completely nonobstructing. However, within the bilateral prost atic urethra nearest to the bladder neck, there were calcifications likely between approximately 1 cm and 1.5 cm in length. As a result, I began with a 500 nm laser fiber at a power setting of 1.5 joul es and 25 hertz to fragment those calcifications out of the prostate tissue associated. In the proce ss, the presence of the residual adenoma was visible and so I continued to use the laser fiber with t he rate increased to the maximum of 60 joules present with this particular laser machine, and I dayana nued to perform an enucleation of the residual adenoma. Starting posteriorly at the region of prior resection of the median bar, which was still nicely patent and resecting into the lateral wall, relea sing the adenoma in between, I utilized the laser fiber to fulgurate and divide the adenomatous fiber s. I continued this to the anterior zone of the prostate, taking care to avoid injury to the striate d urethral sphincter. At the bladder neck, where there was a degree of contracture, I incised this a t the 5 o'clock position until it was even with the remainder of the bladder and trigone. I continue d the resection of the adenoma between the farthest extent of the bladder neck incision from anterior to posterior until I released a nice chunk of adenoma which was dislodged into his bladder. I then turned my attention to the left side of his prostate where I released a similar smaller prostatic radha cification there before resecting a smaller degree of adenoma emanating from the right side of his pr ostate. I similarly incised the bladder neck in the 7 o'clock position until it was flat with the le lamont of the trigone. The intervening tissue from posterior to anterior was resected using the laser f iber to divide all of the adenomatous fibers until a chunk of adenoma was similarly released into his bladder. I then did some clean up by removing any additional smaller adenoma that was hanging and i ntruding into the urethral lumen until a nice patent channel was visible. I then turned my attention to removing the adenomatous fragments from within his bladder; so using a grasper/stone process lead anastacia ce available with the Olympus resectoscope, I grasped the adenomatous tissue, and because it was too large to come out through the 26-Cambodian resectoscope lumen, I brought the entirety of the adenomatous fragment in chunks out by directly pulling it along with the entirety of the scope through the ureth ra. I had to reinsert the scope into the bladder using visual obturator and pull out several additio nal chunks as the chunks were broken into pieces in order to get them out of the urethra until ultima tely all the prostate chunks had been removed and were sent for pathologic analysis. I then surveyed the prostatic urethra for any bleeding, noting I had fulgurated using the laser fiber along the way during the process of the resection, and so no significant bleeding was noted with only some venous o oze from the portions of the prostate. As a result, I surveyed the bladder for any residual prostate chunks or calcifications, and when none were noted, I ensured the ureteral orifices were intact, and once that was confirmed, I retrograded filled his bladder with saline and removed the scope. I then replaced a new 24-Cambodian 3-way Stevenson catheter into his bladder, but I required the use of a catheter guide due to the right angle at the bladder neck. Once the catheter was successfully placed into hi s bladder, the efflux of fluid and urine was crystal clear; so I connected him to slow drip CBI and a floor bag. He was then taken out of the lithotomy position, awakened from general anesthesia, trans ferred to a stretcher, and then transferred to the recovery room in good condition. Complications: None. Discharge Disposition: I would like him to follow up on Thursday in the Urology Clinic to have the cat heter removed and undergo voiding trial. He will be discharged with 5 days of antimicrobial to cover him through the anticipated voiding trial. Subsequent followup should be established with me in josie roximately 3 months' time. RANJIT/DUC Voice ID: [id number] Report ID: [id number]
== END 2023-04-14 13:45 | disposition home or self-care (01) ==
LOC: OR 07:10
PROVIDERS: ATTEND Urology
PROC: 0VB08ZZ Excision of Prostate, Via Natural or Artificial Opening Endoscopic (ICD-10-PCS; 2023-04-14)
PROC: 0V508ZZ Destruction of Prostate, Via Natural or Artificial Opening Endoscopic (ICD-10-PCS; principal; 2023-04-14 09:15)
DX: N42.0 Calculus of prostate (principal); N40.1 Benign prostatic hyperplasia with lower urinary tract symptoms; N13.8 Other obstructive and reflux uropathy
CPT/HCPCS: 93005; 87088; 85025; 87086; 80048; 36415; 85610; 88305; 71046; 52317; 52649; J2704; J2710; J2001; J3010; J1100; J2405; J7120 ×2